=== PATIENT | male | born 1985 | race Caucasian/White ===

== ENCOUNTER 2018-08-31 05:49 | Emergency (ER) | payer OTHER | END 2018-08-31 08:03 | disposition home or self-care (01) | LOC: E/R 05:49 | DX: S13.4XXA Sprain of ligaments of cervical spine, initial encounter (principal); S06.0X1A Concussion with loss of consciousness of 30 minutes or less, initial encounter; V49.40XA Driver injured in collision with unspecified motor vehicles in traffic accident, initial encounter | CPT/HCPCS: 70450; 71045; 72040; 99284-25 ==